=== PATIENT | female | born 1980 | race Caucasian/White ===

== ENCOUNTER 2020-01-03 08:25 | Emergency (ER) | payer OTHER ==
[2020-01-03] MEDS ORDERED: Acetaminophen 500 MG TAB ONE (09:03)
== END 2020-01-03 11:58 | disposition home or self-care (01) ==
LOC: ERS 08:25
DX: O99.513 Diseases of the respiratory system complicating pregnancy, third trimester (principal); J10.1 Influenza due to other identified influenza virus with other respiratory manifestations; Z3A.38 38 weeks gestation of pregnancy
CPT/HCPCS: 87804; 99283

== ENCOUNTER 2020-01-16 09:48 | Inpatient (IN) | payer OTHER ==
[2020-01-16] MEDS ORDERED: Promethazine HCl 25 MG/ML VIAL IM PRN ×3 (10:22→15:48)
[2020-01-16] MEDS ORDERED: Ondansetron PF 4 MG/2 ML Vial IVP PRN ×3 (10:22→15:48)
[2020-01-16] MEDS ORDERED: hydrALAZINE 20 MG/ML VIAL SLOW IVP PRN ×2 (10:22→15:48)
[2020-01-16] MEDS ORDERED: Bicitra 30 ML UDCUP PO SCH (10:30)
[2020-01-16] MEDS ORDERED: CEFAZOLIN 2 GM in Premix Bag 1 BAG IVPB SCH (10:45)
[2020-01-16] MEDS ORDERED: Famotidine/PF 20 mg/2ml Vial ONE (10:47)
--- NOTE | 2020-01-16 10:47 | PDOC.LDHP ---
Labor and Delivery H&P Chief complaint: scheduled section HPI: 39yo A1 at 39w by LMP here for RCS. Baby is breech. Current gestational age (weeks): 39 Due date: 01/23/20 Dating criteria: last menstrual period Grav: 5 Para: 3 OB History Details: h/o SPTB x 2, s/p 17P this Current complications: breech Abnormal US findings: No Past Medical History: Septate uterus Current medications: pre-ronnie vitamins Previous surgical history: low tranverse CS, other (breast augmentation) Social history: none - Physical Exam Vital signs reviewed and normal: yes General: NAD Heart: RRR Lungs: CTAB Abdomen: gravid Extremeties: no edema FHT: category 1 - OB Labs Blood type: O RH: positive Antibody Screen: negative HIV: negative RPR: negative HEPSAg: negative 1 hour GCT: positive 3 hour GTT: negative GBS: positive Urine drug screen: negative Rubella: immune - Assessment L&D Assessment: scheduled repeat section - Plan Plan: admit to L&D, to OR for section, informed consent obtained, anesthesia consult for pain management
[2020-01-16] MEDS: Lactated Ringer's 1,000 ML IV SCH ×3 (10:50→20:52)
[2020-01-16] MEDS ORDERED: Oxytocin 10 UNITS/ML VIAL ONE (11:02)
[2020-01-16] MEDS ORDERED: MORPHINE 5 MG/10 ML PF VIAL ONE (11:02)
[2020-01-16 11:05] LABS: Hemoglobin 12.4 g/dL (12.0-16.0); Mean Corpuscular Hemoglobin 33.8 pg (27.0-31.0); Mean Corpuscular Volume 93.8 fL (78.0-98.0); Mean Platelet Volume 8.6 fL (7.4-10.4); Platelet Count 220 thou/uL (130-400); RBC Distribution Width 13.4 % (11.5-14.5); Red Blood Cell (RBC) Count 3.66 mill/uL (4.20-5.40)
[2020-01-16 11:15] VITALS: BMI 37.3
[2020-01-16 11:51] LABS: HBSAg Index 0.29 S/CO (0-0.99); Hep B Surf Ag Non-Reactive S/CO (NonReactive); Syphilis Antibody Nonreactive (Nonreactive); Syphilis Antibody Index 0.09 S/CO (<1.00 Non-Reactive)
[2020-01-16] MEDS ORDERED: Metoclopramide HCl 10 MG/2 ML VIAL ONE (12:19)
[2020-01-16] MEDS ORDERED: PHENYLEPHRINE-NS 100 MCG/ML 10 ML SYRINGE ONE (12:19)
[2020-01-16] MEDS ORDERED: Ondansetron PF 4 MG/2 ML Vial ONE ×2 (12:19→12:35)
[2020-01-16] MEDS ORDERED: Dexamethasone 20 MG/5 ML VIAL ONE (12:19)
[2020-01-16] MEDS ORDERED: Ketorolac Tromethamine 30 MG/ML VIAL ONE (12:19)
[2020-01-16] MEDS ORDERED: diphenhydrAMINE 50 MG/ML VIAL ONE (12:19)
[2020-01-16] MEDS ORDERED: EPHEDRINE 25 MG/5 ML SYRINGE ONE (12:19)
[2020-01-16] MEDS ORDERED: Naloxone HCl 0.4 mg/ml Vial IV PRN (12:48)
[2020-01-16] MEDS ORDERED: HYDROmorphone 2 MG/ML VIAL SLOW IVP PRN (12:48)
[2020-01-16] MEDS ORDERED: diphenhydrAMINE 50 MG/ML VIAL IVP PRN (12:48)
[2020-01-16] MEDS ORDERED: Meperidine HCl/PF 25 MG/ML VIAL SLOW IVP PRN (12:48)
[2020-01-16] MEDS ORDERED: Promethazine HCl 25 MG SUPP PR PRN (12:48)
[2020-01-16] MEDS ORDERED: Naloxone HCl 0.4 mg/ml Vial IVP PRN ×2 (12:48)
[2020-01-16] MEDS ORDERED: L&D-Morphine 4 MG/ML VIAL SLOW IVP PRN (12:48)
[2020-01-16] MEDS ORDERED: Ondansetron HCl/PF 4 MG/2 ML Vial IVP PRN (12:48)
[2020-01-16] MEDS ORDERED: Communication Order-Pharmacy FS SCH (13:00)
--- NOTE | 2020-01-16 13:20 | PDOC.OPDEL ---
OB Operative/Delivery Note Delivery Dr/Surgeon: Jeovany Assist: n/a Pre-Delivery Diagnosis: scheduled section Procedure/Post Delivery Dx: repeat low transverse CS Weeks gestation: 39 Anesthesia: spinal - Findings A Sex: female Weight: 7 lb 5 oz - 1 min: 8 - 5 min: 9 - Additional Findings/Plan Placenta delivered: spontaneous findings: low transverse hysterotomy without extension, normal tubes, normal ovaries, other (bicornuate uterus) Estimated blood loss: 300cc Compilations/Other Findings: breech presentation Post delivery plan: routine recovery
[2020-01-16] MEDS ORDERED: Loratadine 10 MG TAB PO PRN (13:24)
[2020-01-16] MEDS ORDERED: Dextromethorphan Polistirex 30 MG/5 ML (89 ML BOTTLE) PO PRN (13:25)
--- NOTE | 2020-01-16 13:54 | OP ---
DATE OF PROCEDURE: 01/16/2020 PREOPERATIVE DIAGNOSES: 1. Intrauterine at 39 weeks and 0 days. 2. Prior x1. 3. Breech presentation. 4. Bicornuate uterus. POSTOPERATIVE DIAGNOSES: 1. Intrauterine at 39 weeks and 0 days. 2. Prior x1. 3. Breech presentation. 4. Bicornuate uterus. PROCEDURE PERFORMED: Repeat low-transverse section via Pfannenstiel skin incision. ANESTHESIA: Spinal. FRAMING MANAGER SURGEON: Priyanka Argueta MD. ESTIMATED BLOOD LOSS: 300 mL. URINE OUTPUT: 175 mL of clear urine. COMPLICATIONS: None. DRAINS: Arias catheter. PATHOLOGY: None. FINDINGS: Female in breech presentation. Clear amniotic fluid. Terminal meconium. Apgars 8 and 9. Weight is pending. Bicornuate uterus present. Normal ovaries and tubes bilaterally. Hysterotomy without extension. DESCRIPTION OF PROCEDURE: The patient was taken to the operating room where a spinal anesthesia was obtained without difficulty. The patient was prepped and draped in a sterile fashion in a dorsal supine position with a leftward tilt. After ensuring adequacy of anesthesia, a Pfannenstiel skin incision was made and carried down through the underlying subcutaneous tissue with the Bovie. The fascia was nicked in midline with the Bovie and carried laterally with the Gardiner scissors. The superior aspect of the fascia was tented with 2 Joshua's and dissected off the rectus with Bovie cautery. The inferior aspect of the fascia was tented with 2 Joshua's and dissected off the rectus with Bovie as well. The rectus was retracted. The peritoneum was bluntly entered into, the vesicouterine peritoneum was noted to be adherent onto the lower uterine segment. This was taken down with the Metzenbaums to allow placement of the Jag O retractor. The bicornuate uterus was noted upon palpating the uterus and the abdomen. The lower uterine segment was incised in a transverse fashion and extended with a Garcia maneuver. The infant's breech was brought to the hysterotomy and delivered with standard breech maneuvers with fundal pressure. The head was flexed, which allowed delivery of the after coming head and the 's cord was clamped and infant handed to awaiting Davion team. The cord blood was obtained. The placenta was allowed to spontaneously deliver. The uterus was exteriorized, cleared off all clots and debris and the uterine anomaly was noted. Uterus was contracted well. The posterior cul-de-sac was lapped out. The uterus was placed back into the abdomen and the hysterotomy was repaired with a #1 Monocryl in a running locking fashion. An additional [id number] was placed on the left hysterotomy apex for hemostasis. The pelvis was irrigated and suctioned and noted to have excellent hemostasis. The Jag O retractor was removed. The rectus muscles were examined and cauterized of any bleeders as well as the edge of the peritoneum. The fascia was reapproximated with 0 PDS x2 sutures with excellent reapproximation. The subcutaneous tissue was irrigated and cauterized of any bleeders and reapproximated with a 2-0 plain gut in a running fashion. The skin was closed with 4-0 Monocryl in a subcuticular fashion. Dermabond was applied as well as a pressure dressing. The patient tolerated the procedure well. Sponge, lap, and needle counts were correct x2. The patient was taken to recovery room in stable condition. The patient received Ancef 2 g prior to the procedure. Job ID: [id number]
[2020-01-16] MEDS ORDERED: NS / Oxytocin 40 units/1000ml 1,000 ML ONE (14:07)
[2020-01-16] MEDS ORDERED: Bisacodyl 10 MG SUPP PR PRN (15:48)
[2020-01-16] MEDS ORDERED: Lanolin Ointment 7 GM TUBE TOP PRN (15:48)
[2020-01-16] MEDS ORDERED: Acetaminophen 325 MG TAB PO PRN (15:48)
[2020-01-16] MEDS ORDERED: diphenhydrAMINE 25 MG CAP PO PRN (15:48)
[2020-01-16] MEDS ORDERED: Ketorolac Tromethamine 30 MG/ML VIAL IVP PRN (18:30)
[2020-01-16] MEDS: Docusate Calcium (SURFAK) 240 MG CAP PO SCH (20:48)
[2020-01-16] MEDS: guaiFENesin ER 600 MG TAB PO SCH (20:48)
[2020-01-16] MEDS: Simethicone Chewable 80 MG TAB PO PRN (20:49)
[2020-01-16] MEDS: Ferrous Sulfate 325 MG TAB PO SCH (22:27)
[2020-01-17] MEDS: Simethicone Chewable 80 MG TAB PO PRN ×3 (00:49→20:54)
[2020-01-17] MEDS ORDERED: HYDROcodone/Acetaminophen 5/325 mg Tablet PO PRN (01:00)
[2020-01-17] MEDS ORDERED: Zolpidem Tartrate 5 MG TAB PO PRN (01:00)
--- NOTE | 2020-01-17 05:15 | PDOC.PP ---
Addendum entered and electronically signed by Elida Brown DO 01/17/20 06 :55: Elevated BP without diagnosis of HTN: - No previous elevated BP's noted - No hx of cHTN or gHTN - Continue to monitor closely - No severe range pressures (high to 159/88) - Consider addition of PO BP medications if BP continues to be elevated Original Note: Post Progress Note Post Day #: 1 Subjective: Patient doing well. Pain very well controlled. Passing flatus. Arias removed, has not urinated on her own yet. Ambulating without difficulty. Tolerating PO. Using nipple shield to breastfeed. PO intake tolerated: yes Flatus: yes Ambulation: yes Vital Signs (12 hours) Temp Pulse Resp BP Pulse Ox 01/17/20 00:50 98.8 F 99 16 138/83 01/16/20 19:37 98.4 F 92 16 142/78 H 94 L 01/16/20 17:30 98.7 F 92 16 156/73 H 94 L Weight Weight 95.464 kg - Physical Examination General: NAD Deviation from normal: BP elevated with systolic BP's in 150's Cardiovascular: RRR Respiratory: non-labored breathing Abdominal: + bowel sounds, lochia (less than period), no distention, appropriately TTP Fundus firm & at: 2 cm above umbilicus Skin: no rash Deviation from normal: Pressure dressing in place which is clean and dry Neurological: no gross focal deficits Psychiatric: A&Ox3, normal affect Result Diagrams: 01/17/20 06:12 Additional Labs: Post Labs Blood Type O POSITIVE 01/16/20 13:22 Hep Bs Antigen Non-Reactive S/CO (NonReactive) 01/16/20 10:45 (1) Term Code(s): Z34.90 - ENCNTR FOR SUPRVSN OF NORMAL , UNSP, UNSP TRIMESTER Status: Acute (2) Status post repeat low transverse section Code(s): Z98.891 - HISTORY OF UTERINE SCAR FROM PREVIOUS SURGERY Status: Acute (3) Bicornate uterus Code(s): Q51.3 - BICORNATE UTERUS Status: Acute - Assessment/Plan Routine PP Care - Post-op day #1 s/p rLTCS - Rh positive, rubella immune - Meeting PP milestones - Encourage ambulation - Lochia minimal - Hg 12.4 --> 10.8, VSS Dispo: Plan for d/c home tomorrow vs. Sunday. Addendum - Attending - Attending Attestation Date/Time: 01/17/2014 I personally evaluated the patient and discussed the management with Dr. Brown. I agree with the History, Examination, Assessment and Plan documented above.
[2020-01-17] MEDS: HYDROcodone/Acetaminophen 5/325 mg Tablet PO PRN ×4 (05:19→23:36)
[2020-01-17 06:47] LABS: Hemoglobin 10.8 g/dL (12.0-16.0); Mean Corpuscular HGB CONC 34.9 g/dL (32.0-36.0); Mean Corpuscular Hemoglobin 33.4 pg (27.0-31.0); Mean Corpuscular Volume 95.6 fL (78.0-98.0); Mean Platelet Volume 8.8 fL (7.4-10.4); Platelet Count 199 thou/uL (130-400); RBC Distribution Width 13.6 % (11.5-14.5); Red Blood Cell (RBC) Count 3.24 mill/uL (4.20-5.40); White Blood Cell (WBC) Count 14.3 thou/uL (4.8-10.8)
[2020-01-17] MEDS: Prenatal Vitamin 1 TAB PO SCH (07:55)
[2020-01-17] MEDS: Docusate Calcium (SURFAK) 240 MG CAP PO SCH ×2 (07:55→20:54)
[2020-01-17] MEDS: Ferrous Sulfate 325 MG TAB PO SCH ×2 (07:55→22:38)
[2020-01-17] MEDS: guaiFENesin ER 600 MG TAB PO SCH ×2 (07:55→20:54)
[2020-01-17] MEDS ORDERED: Adacel (T-DAP) 0.5 ML SYRINGE IM ONE (09:00)
[2020-01-17] MEDS: Ibuprofen 800 MG TAB PO SCH ×2 (14:03→20:54)
--- NOTE | 2020-01-18 03:48 | PDOC.PP ---
Post Progress Note Post Day #: 2 Subjective: Pt reports pain worse on R side of incision that is improved with medications and heating pad. She is only ambulating to the bathroom, but has not been walking much. She reports pain on her right lower chest when she takes a deep breath or cough. She reports a productive cough for 2 weeks, but denies any fever. PO intake tolerated: yes Flatus: yes Ambulation: yes Vital Signs (12 hours) Temp Pulse Resp BP Pulse Ox 01/18/20 00:10 98.0 F 95 16 137/81 95 01/17/20 20:25 98.2 F 109 H 18 141/82 H 96 01/17/20 16:51 98.1 F 113 H 18 138/78 96 Weight Weight 95.464 kg - Physical Examination General: NAD Cardiovascular: no m/r/g, RRR Respiratory: clear to auscultation bilaterally, non-labored breathing Abdominal: + bowel sounds, lochia (minimal), no distention, appropriately TTP Fundus firm & at: 1cm below umbilicus Skin: CS incision dry & intact, no rash Neurological: no gross focal deficits Psychiatric: A&Ox3, normal affect Result Diagrams: 01/17/20 06:12 Additional Labs: Post Labs Blood Type O POSITIVE 01/16/20 13:22 Hep Bs Antigen Non-Reactive S/CO (NonReactive) 01/16/20 10:45 (1) Status post repeat low transverse section Code(s): Z98.891 - HISTORY OF UTERINE SCAR FROM PREVIOUS SURGERY Status: Acute (2) Elevated BP without diagnosis of hypertension Code(s): R03.0 - ELEVATED BLOOD-PRESSURE READING, W/O DIAGNOSIS OF HTN Status : Acute - Assessment/Plan 1. Routine PP Care - Post-op day #2 s/p rLTCS - Rh positive, rubella immune - Meeting PP milestones - Encourage ambulation - Continue PNV - Pain control with norco - Lochia minimal - Hg 12.4 --> 10.8, VSS 2. Elevated BP without diagnosis of HTN: - No previous elevated BP's noted - No hx of cHTN or gHTN - Continue to monitor closely - No severe range pressures and only one mild range pressure in past 24 hours - Consider addition of PO BP medications if BP continues to be elevated 3. Pleuritic chest pain Pt with 2 weeks of cough and has now developed pleuritic chest pain post-op. She has been trying to use incentive spirometer, but is having difficulty -Chest X-ray -Continue IS, recommended 10 times per hour while awake -Further plan pending CXR results Discussed with Dr. Sahu Addendum - Attending - Attending Attestation Date/Time: 01/18/20 1098 I personally evaluated the patient and discussed the management with Dr. Mcallister. I agree with the History, Examination, Assessment and Plan documented above.
[2020-01-18] MEDS: Simethicone Chewable 80 MG TAB PO PRN ×2 (04:17→21:45)
[2020-01-18] MEDS: HYDROcodone/Acetaminophen 5/325 mg Tablet PO PRN ×5 (04:18→21:43)
[2020-01-18] MEDS: Ibuprofen 800 MG TAB PO SCH ×3 (05:22→21:45)
[2020-01-18] MEDS: Ferrous Sulfate 325 MG TAB PO SCH (07:52)
[2020-01-18] MEDS: guaiFENesin ER 600 MG TAB PO SCH ×2 (07:52→21:45)
[2020-01-18] MEDS: Docusate Calcium (SURFAK) 240 MG CAP PO SCH ×2 (07:52→21:45)
[2020-01-18] MEDS: Prenatal Vitamin 1 TAB PO SCH (07:52)
--- NOTE | 2020-01-18 08:46 | RAD ---
EXAM: Chest PA and lateral: HISTORY: Cough COMPARISON: none FINDINGS: Lung parrish are clear. Vascular markings are normal. Heart and mediastinum appear unremarkable. Osseous structures are unremarkable. IMPRESSION: Unremarkable chest
--- NOTE | 2020-01-18 11:05 | OP ---
DATE OF PROCEDURE: 01/16/2020 ADDENDUM: I was present and scrubbed to assist the uncomplicated low-transverse with Dr. Danisha Thayer. Please see her note for full details. Job ID: [id number]
[2020-01-19] MEDS: Ferrous Sulfate 325 MG TAB PO SCH ×2 (00:11→07:34)
[2020-01-19] MEDS: Simethicone Chewable 80 MG TAB PO PRN ×2 (01:57→08:36)
[2020-01-19] MEDS: HYDROcodone/Acetaminophen 5/325 mg Tablet PO PRN ×3 (01:57→13:24)
[2020-01-19] MEDS: Ibuprofen 800 MG TAB PO SCH ×2 (05:47→13:24)
[2020-01-19] MEDS: guaiFENesin ER 600 MG TAB PO SCH (08:36)
[2020-01-19] MEDS: Docusate Calcium (SURFAK) 240 MG CAP PO SCH (08:36)
[2020-01-19] MEDS: Prenatal Vitamin 1 TAB PO SCH (08:36)
[2020-01-19 12:03] VITALS: TEMP 98.7
--- NOTE | 2020-01-19 13:54 | PDOC.PP ---
Post Progress Note Post Day #: 3 Subjective: mild dull BAUTISTA off and on for 2 days PO intake tolerated: yes Flatus: yes Ambulation: yes Vital Signs (12 hours) Temp Pulse Resp BP Pulse Ox 01/19/20 12:02 98.7 F 101 H 20 149/88 H 01/19/20 08:28 98.6 F 99 20 139/81 97 01/19/20 04:15 98.3 F 86 16 151/93 H Weight Weight 210 lb 7.408 oz - Physical Examination General: NAD Respiratory: non-labored breathing Abdominal: no distention, appropriately TTP Fundus firm & at: umb-2 Extremities: negative homans (B) Skin: CS incision dry & intact Neurological: no gross focal deficits Psychiatric: normal affect Result Diagrams: 01/17/20 06:12 Additional Labs: Post Labs Blood Type O POSITIVE 01/16/20 13:22 Hep Bs Antigen Non-Reactive S/CO (NonReactive) 01/16/20 10:45 - Assessment/Plan POD3 s/p RCS BP mildly elevated, will start procardia, pt will monitor BP at home BID, PIH warnings given Mild asx anemia due to surgical blood loss, asx. Cont PNV on DC Met all postop milestones Rh pos RImm DC home FU 2 wk
[2020-01-19] MEDS ORDERED: NIFEdipine XL 30 MG TAB PO SCH (14:00)
[2020-01-19 14:58] VITALS: BP 149/67
[2020-01-20] MEDS ORDERED: NIFEdipine XL 30 MG TAB PO SCH (09:00)
--- NOTE | 2020-01-21 04:54 | PQF ---
Christy Cardoso JANELLE [id number] CLINICAL DOCUMENTATION CLARIFICATION FORM: POST DISCHARGE Addendum to original discharge summary date: ____ Late entry note date: __ DATE:01/21/2020 ATTN:Danisha Tran Please exercise your independent, professional judgment in responding to the clarification form. Clinical indicators are provided on the bottom of this form for your review In your clinical opinion based on clinical findings below, can you please specify the Acuity of Anemia due to surgery blood loss: Please check appropriate box(s): [ X ] Acute [ ] Chronic [ ] Acute on Chronic [ ] Other diagnosis [ ] Unable to determine In addition, please specify: Present on Admission (POA): [ ] Yes [ X ] No [ ] Unable to determine For continuity of documentation, please document condition throughout progress notes and discharge summary. Thank You. CLINICAL INDICATORS - SIGNS / SYMPTOMS / LABS Laboratory 01/16 RBC 3.66, Hgb 12.4, Hct 34.3 Laboratory RBC 14.3, Hgb 10.8, Hct 31.0 Vital signs BP144/76, Pulse 92, Resp 18 Temp 98.2 Operative report p1 01/16 Echinated blood loss: 300 ml PN p2 01/18 Dr Thayer Mild asx anemia due to surgical blood loss, asx RISK FACTORS Operative report p1 01/16 39 weeks IUP Operative report p1 01/16 Prior CS Operative report p1 01/16 s/p Low transverse CS TREATMENTS: JAN 18 IVF Ferrous Sulfate ordered if Hemoglobin <10 gms Repeat blood chem 01/16 PN p2 01/18 - Continue PNV Hematology monitoring Collected 01/16 (This form is maintained as a part of the permanent medical record) 2014 [employer] All Rights Reserved [email or web address]
== END 2020-01-19 16:15 | disposition home or self-care (01) | DRG 787 ==
LOC: L&D-LIB 09:48 → 3SW 16:00
PROVIDERS: ADMIT Student in an Organized Health Care Education/Training Program; ATTEND Student in an Organized Health Care Education/Training Program
PROC: 10D00Z1 Extraction of Products of Conception, Low, Open Approach (ICD-10-PCS; principal; 2020-01-16)
DX: O34.211 Maternal care for low transverse scar from previous cesarean delivery (principal); D62 Acute posthemorrhagic anemia; O34.03 Maternal care for unspecified congenital malformation of uterus, third trimester; Q51.3 Bicornate uterus; Z3A.39 39 weeks gestation of pregnancy; Z37.0 Single live birth; O32.1XX0 Maternal care for breech presentation, not applicable or unspecified; O77.0 Labor and delivery complicated by meconium in amniotic fluid; R03.0 Elevated blood-pressure reading, without diagnosis of hypertension; O90.89 Other complications of the puerperium, not elsewhere classified; R07.89 Other chest pain; O90.81 Anemia of the puerperium
CPT/HCPCS: 36415; 51702; 71046; 85027; 86780; 86850; 86900; 86901; 87340; J0690; J1100; J1200; J1885; J2274; J2405; J2590; J2765; S0028

== ENCOUNTER 2020-01-20 06:53 | Inpatient (IN) | payer OTHER ==
[2020-01-20 07:32] VITALS: BMI 35.4
[2020-01-20] MEDS ORDERED: hydrALAZINE 20 MG/ML VIAL SLOW IVP PRN ×2 (08:04→10:04)
[2020-01-20] MEDS ORDERED: Promethazine HCl 25 MG in Sodium Chloride 0.9% 50 ML IVPB SCH (08:15)
[2020-01-20 08:42] LABS: #Eosinphils 0.1 thou/uL (0.0-0.7); #Lymphocytes 1.4 thou/uL (1.20-3.40); #Monocytes 0.4 thou/uL (0.11-0.59); %Basophils 0.2 % (0.0-1.0); %Eosinophils 0.7 % (0.0-10.0); %Monocytes 3.5 % (0.0-10.0); %Neutrophils 82.7 % (42.0-75.0); Mean Corpuscular HGB CONC 32.4 g/dL (32.0-36.0); Mean Corpuscular Hemoglobin 30.9 pg (27.0-31.0); Mean Corpuscular Volume 95.3 fL (78.0-98.0); Mean Platelet Volume 7.7 fL (7.4-10.4); Platelet Count 284 thou/uL (130-400); RBC Distribution Width 13.6 % (11.5-14.5); Red Blood Cell (RBC) Count 3.89 mill/uL (4.20-5.40); White Blood Cell (WBC) Count 10.8 thou/uL (4.8-10.8)
[2020-01-20 08:59] LABS: ALT (SGPT) 15 U/L (8-55); AST (SGOT) 18 U/L (5-34); Albumin 3.6 g/dL (3.5-5.0); Alkaline Phosphatase 157 U/L (40-110); Anion Gap 14 mmol/L (10-20); BUN (Urea Nitrogen) 6 mg/dL (7.0-18.7); Bilirubin, Total 0.3 mg/dL (0.2-1.2); Calc. Creatinine Clearance 174 mL/min (70-130); Calcium 9.4 mg/dL (7.8-10.44); Carbon Dioxide 25 mmol/L (22-29); Chloride 99 mmol/L (98-107); Estimated GFR-MDRD Greater than 90; Globulin 3.9 g/dL (2.4-3.5); Glucose 106 mg/dL (70-105); Potassium 3.9 mmol/L (3.5-5.1); Protein, Total 7.5 g/dL (6.0-8.3); Sodium 134 mmol/L (136-145)
[2020-01-20] MEDS ORDERED: Magnesium Sulfate 20 GM/WATER 500 ML BAG IVPB SCH (10:00)
[2020-01-20] MEDS ORDERED: Calcium Gluconate 4.6 MEQ in Sodium Chloride 0.9% 100 ML IVPB PRN (10:00)
[2020-01-20] MEDS ORDERED: Acetaminophen 500 MG TAB PO PRN (10:00)
[2020-01-20] MEDS ORDERED: Ondansetron PF 4 MG/2 ML Vial IVP PRN (10:00)
[2020-01-20] MEDS ORDERED: Zolpidem Tartrate 5 MG TAB PO PRN (10:00)
[2020-01-20] MEDS ORDERED: Magnesium Sulfate 20 gm/500 ml 20 GM/500 ML BAG ONE (10:03)
[2020-01-20] MEDS ORDERED: Butorphanol Tartrate 1 MG/ML VIAL ONE (10:14)
[2020-01-20] MEDS ORDERED: Labetalol HCl 100 MG/20 ML VIAL SLOW IVP SCH (10:15)
[2020-01-20] MEDS: Lactated Ringer's 1,000 ML IV SCH ×2 (10:19→18:19)
[2020-01-20] MEDS: Butorphanol Tartrate 1 MG/ML VIAL SLOW IVP PRN ×2 (12:19→21:51)
--- NOTE | 2020-01-20 12:43 | PDOC.LDHP ---
Labor and Delivery H&P Chief complaint: other (headache severe) HPI: 39yo P4 s/p RCS now POD4 represented due to excruciating BAUTISTA since this am at 0300, unrelieved with norco and ibuprofen. No visual changes or RUQ pain. BP has been mild, was started on procardia prior to DC and took that this am. Grav: 5 Para: 4 Past Medical History: bicornuate uterus Current medications: pre- vitamins, other (procardia, norco, ibuprofen) Previous surgical history: low tranverse CS, other (breast augmentation) Allergies/Adverse Reactions: Allergies Allergy/AdvReac Type Severity Reaction Status Date / Time No Known Allergies Allergy Verified 01/16/20 10:45 Social history: none - Physical Exam Abnormal vital signs: mild range blood pressures General: other (writhing in pain) Heart: RRR Lungs: CTAB Abdomen: NTTP (CS inc c/d/i) Extremeties: trace edema - OB Labs Additional Labs: PIH labs wnl, urine pending - Assessment preeclampsia with severe features - Plan -: Mag for seizure protection, treat BAUTISTA with IV meds. Treat BP prn severe pressures. If BAUTISTA does not resolve will need CT.
[2020-01-20] MEDS ORDERED: Metoclopramide HCl 10 MG/2 ML VIAL IVP SCH (13:00)
[2020-01-20] MEDS ORDERED: diphenhydrAMINE 50 MG/ML VIAL IVP SCH (13:00)
[2020-01-20] MEDS ORDERED: Ketorolac Tromethamine 30 MG/ML VIAL IVP SCH (13:00)
[2020-01-20] MEDS: Meperidine HCl/PF 25 MG/ML VIAL IM/IV PRN ×3 (13:46→20:51)
[2020-01-20] MEDS: Promethazine HCl 25 MG/ML VIAL IM PRN ×2 (13:46→20:51)
[2020-01-20] MEDS: Ketorolac Tromethamine 30 MG/ML VIAL IVP SCH (18:13)
[2020-01-20] MEDS: Magnesium Sulfate 20 gm/500 ml 20 GM/500 ML BAG IVPB SCH (18:19)
[2020-01-20] MEDS ORDERED: HYDROcodone/Acetaminophen 5/325 mg Tablet PO PRN ×2 (18:29)
[2020-01-21] MEDS: Ketorolac Tromethamine 30 MG/ML VIAL IVP SCH ×2 (01:07→07:58)
[2020-01-21] MEDS: Butorphanol Tartrate 1 MG/ML VIAL SLOW IVP PRN (02:27)
[2020-01-21] MEDS: Magnesium Sulfate 20 gm/500 ml 20 GM/500 ML BAG IVPB SCH (04:00)
[2020-01-21] MEDS: Meperidine HCl/PF 25 MG/ML VIAL IM/IV PRN ×2 (06:27→09:03)
[2020-01-21] MEDS: Promethazine HCl 25 MG/ML VIAL IM PRN (06:28)
[2020-01-21] MEDS: NIFEdipine XL 30 MG TAB PO SCH (10:10)
[2020-01-21] MEDS ORDERED: Fioricet 325/50/40 mg Tablet PO PRN (11:21)
--- NOTE | 2020-01-21 11:25 | PDOC.PP ---
Post Progress Note Post Day #: 5 Subjective: BAUTISTA improved, 3/10, overnight was better and able to rest. No visual changes or abd pain. Vital Signs (12 hours) Pulse BP 01/21/20 10:10 93 134/83 Weight Weight 200 lb - Physical Examination General: NAD Cardiovascular: RRR Respiratory: non-labored breathing Abdominal: no distention, appropriately TTP Extremities: negative homans (B) Skin: CS incision dry & intact Neurological: no gross focal deficits Psychiatric: normal affect Result Diagrams: 01/20/20 08:20 01/20/20 08:20 - Assessment/Plan POD5 s/p RCS readmitted for PP preeclampsia VSSAF, occ mild range blood pressures PEC- on Mag will DC now, labs wnl, on procardia, BAUTISTA improving. BAUTISTA- will transition to po meds only Transfer to floor and monitor BAUTISTA and BP, poss home tomorrow
[2020-01-21] MEDS ORDERED: Bisacodyl 10 MG SUPP PR PRN (13:15)
[2020-01-21] MEDS ORDERED: hydrALAZINE 20 MG/ML VIAL SLOW IVP PRN (13:15)
[2020-01-21] MEDS ORDERED: Milk Of Magnesia 30 ML UDCUP PO PRN (13:15)
[2020-01-21] MEDS ORDERED: Lanolin Ointment 7 GM TUBE TOP PRN (13:15)
[2020-01-21] MEDS ORDERED: Preparation H Ointment 28 GM TUBE PR PRN (13:15)
[2020-01-21] MEDS ORDERED: diphenhydrAMINE 25 MG CAP PO PRN (13:15)
[2020-01-21] MEDS: Ibuprofen 800 MG TAB PO PRN (16:53)
[2020-01-21] MEDS: Docusate Calcium (SURFAK) 240 MG CAP PO SCH (21:05)
[2020-01-21] MEDS ORDERED: Simethicone Chewable 80 MG TAB PO PRN (22:27)
[2020-01-22] MEDS: Ibuprofen 800 MG TAB PO PRN ×2 (00:18→07:07)
[2020-01-22] MEDS: Lactated Ringer's 1,000 ML IV SCH (07:24)
--- NOTE | 2020-01-22 08:00 | PDOC.PP ---
Post Progress Note Post Day #: 6 PO intake tolerated: yes Flatus: yes Ambulation: yes Vital Signs (12 hours) Temp Pulse Resp BP Pulse Ox 01/22/20 05:10 98.9 F 73 18 123/69 01/22/20 00:10 98.2 F 88 18 124/68 01/21/20 21:00 95 01/21/20 20:10 98.2 F 107 H 16 126/73 95 Weight Weight 200 lb - Physical Examination General: NAD Respiratory: non-labored breathing Abdominal: no distention, appropriately TTP Fundus firm & at: umb-2 Extremities: negative homans (B) Skin: CS incision dry & intact Neurological: no gross focal deficits Psychiatric: normal affect Result Diagrams: 01/20/20 08:20 01/20/20 08:20 - Assessment/Plan POD6 s/p RCS readmitted with BAUTISTA and PP PEC VSSAF, BP normal BAUTISTA resolved s/p fiorcet s/p Mag for PEC Pain controlled, postop doing fine DC home with fiorcet rx, FU 2 wk
[2020-01-22] MEDS: Docusate Calcium (SURFAK) 240 MG CAP PO SCH (08:03)
[2020-01-22] MEDS: NIFEdipine XL 30 MG TAB PO SCH (08:06)
[2020-01-22 08:18] VITALS: BP 125/83; TEMP 98.3
[2020-01-22] MEDS ORDERED: Prenatal Vitamin 1 TAB PO SCH (09:00)
== END 2020-01-22 11:15 | disposition home or self-care (01) | DRG 776 ==
LOC: L&D/OP 06:53 → L&D 10:25 → 3SW 01-21 14:09
PROVIDERS: ADMIT Student in an Organized Health Care Education/Training Program; ATTEND Student in an Organized Health Care Education/Training Program
DX: O14.15 Severe pre-eclampsia, complicating the puerperium (principal); O99.89 Other specified diseases and conditions complicating pregnancy, childbirth and the puerperium; R51 Headache
CPT/HCPCS: 80053; 85025; J0360; J0595; J1200; J1885; J2175; J2550; J2765; J3475

== ENCOUNTER 2020-11-10 08:20 | Outpatient (CLI) | payer OTHER ==
[2020-11-10 16:54] LABS: BHCG - Serum Negative (NEGATIVE); Pregs Control Background? CLEAR/WHITE (CLR/WHITE); Pregs Control Bar Appear? YES (CONTROL BAR)
[2020-11-10 17:17] LABS: #Eosinphils 0.2 10x3/uL (0.0-0.5); #Monocytes 0.4 10x3/uL (0.0-1.1); #Neutrophils 3.5 10x3/uL (1.5-8.4); %Basophils 0.4 % (0.0-2.0); %Eosinophils 3.2 % (0.0-6.0); %Lymphocytes 44.3 % (18.0-47.0); %Monocytes 5.5 % (0.0-10.0); %Neutrophils 46.3 % (40.0-75.0); Mean Corpuscular HGB CONC 33.1 G/DL (32.0-36.0); Mean Corpuscular Volume 93.8 fl (80.0-100.0); Mean Platelet Volume 11.3 fl (7.4-10.4); Platelet Count 221 10x3/uL (130-400); RBC Distribution Width 12.8 % (11.5-14.5); Red Blood Cell (RBC) Count 4.51 10x6/uL (3.90-5.20); White Blood Cell (WBC) Count 7.5 10x3/uL (4.5-11.0)
[2020-11-11 02:44] LABS: SARS-CoV-2 MS2 Positive; SARS-CoV-2 N Gene Negative; SARS-CoV-2 S Gene Negative; SARS-CoV-2 by NAA Not Detected (NotDetected); SARS-CoV-2 orf1ab Negative
== END 2020-11-10 08:21 | disposition home or self-care (01) ==
LOC: LABBT 08:20
PROVIDERS: ATTEND Surgery
DX: Z01.812 Encounter for preprocedural laboratory examination (principal); K43.9 Ventral hernia without obstruction or gangrene; Z20.828 Contact with and (suspected) exposure to other viral communicable diseases
CPT/HCPCS: 84703; 85025; 87635; U0003

== ENCOUNTER 2020-11-16 06:22 | Day surgery (SDC) | payer OTHER ==
[2020-11-10 13:18] VITALS: BMI 31.8
[2020-11-16] MEDS ORDERED: Bupivacaine PF 0.5% 30 ML VIAL ONE (06:35)
[2020-11-16] MEDS ORDERED: Lidocaine 1% w/Epinephrine 1:100K 20 ML VIAL ONE (06:35)
[2020-11-16] MEDS ORDERED: Fentanyl 250 MCG/5 ML VIAL ONE (06:52)
[2020-11-16] MEDS ORDERED: Midazolam HCl 2 mg/2 ml Vial ONE ×2 (06:52→07:03)
[2020-11-16] MEDS ORDERED: Scopolamine 1.5 mg/72 hour Patch ONE (07:03)
[2020-11-16] MEDS ORDERED: Ondansetron PF 4 MG/2 ML Vial ONE ×3 (07:03→10:23)
[2020-11-16] MEDS ORDERED: Propofol 500 MG/50 ML VIAL ONE (07:12)
[2020-11-16] MEDS ORDERED: Promethazine HCl 25 MG/ML VIAL ONE (07:14)
[2020-11-16] MEDS ORDERED: Famotidine/PF 20 mg/2ml Vial ONE (07:15)
[2020-11-16] MEDS ORDERED: SUGAMMADEX SODIUM 200 MG/2 ML VIAL ONE (08:22)
--- NOTE | 2020-11-16 08:43 | OP ---
DATE OF PROCEDURE: 11/16/2020 PREOPERATIVE DIAGNOSIS: Epigastric hernia repair. PROCEDURE PERFORMED: Umbilical/epigastric hernia repair with mesh. INDICATIONS: This is a 40-year-old female, who had a painful bulge just above the umbilicus. FINDINGS: There was about 2 cm encased fatty glob with a very small difficult to find defect. DESCRIPTION OF PROCEDURE: In the preop area, we marked the patient while she was awake, where the lesion was. She was taken to the operating room, where she underwent general mask anesthesia. Her abdomen was prepped and draped in usual fashion. An epigastric midline incision was performed. Subcu divided sharply and this glob of fat was found that seemed to be encompassed in a capsule. It was dissected down to the fascia and excised, but I really could not find much of a defect. The fascia was opened, so I could get my finger and feel, I felt inferiorly, I felt superiorly, I could not find much of a defect. A 6.4 cm piece of mesh was inserted in the preperitoneal space, which covered the umbilical area as well as the epigastric area. This was sutured down with interrupted 0 Ethibond suture. Hemostasis was achieved with electrocautery. The subcu was reapproximated with interrupted 3-0 Vicryl. The skin closed with a running subcuticular 4-0 Rapide. Steri-Strips applied. Sterile bandage applied. The patient tolerated the procedure well, transferred to Recovery in good condition. Sponge and needle count verified correct x2. Job ID: [id number]
[2020-11-16] MEDS ORDERED: Ketorolac Tromethamine 30 MG/ML VIAL ONE (10:23)
[2020-11-16] MEDS ORDERED: Glycopyrrolate 0.2 MG/ML 5 ML SYRINGE ONE (10:23)
[2020-11-16] MEDS ORDERED: Rocuronium Bromide 10 MG/ML (10ML VIAL) ONE (10:23)
[2020-11-16] MEDS ORDERED: Dexamethasone 20 MG/5 ML VIAL ONE (10:23)
[2020-11-16] MEDS ORDERED: PROPOFOL 200 MG/20 ML VIAL ONE (10:23)
== END 2020-11-16 11:14 | disposition home or self-care (01) ==
LOC: SDC 06:22
PROVIDERS: ATTEND Surgery
PROC: 0WQF0ZZ Repair Abdominal Wall, Open Approach (ICD-10-PCS; principal; 2020-11-16)
DX: K43.9 Ventral hernia without obstruction or gangrene (principal); Z79.899 Other long term (current) drug therapy
CPT/HCPCS: J0690; J1100; J1885; J2250; J2405; J2550; J2704; J3010; S0020; S0028

== ENCOUNTER 2023-06-28 09:14 | Outpatient (CLI) | payer BC | END 2023-06-28 09:15 | disposition home or self-care (01) | LOC: RAD 09:14 | PROVIDERS: ATTEND Family Medicine | DX: M16.12 Unilateral primary osteoarthritis, left hip (principal) ==